=== PATIENT | female | born 1990 | race Caucasian/White ===

== ENCOUNTER 2018-10-18 11:13 | Emergency (ER) | payer MEDICAID ==
[~2018-10-18] VITALS: Ht 167.6 cm; Wt 67.0 kg
[2018-10-18 11:40] VITALS: BP 139/86
== END 2018-10-18 13:28 | disposition home or self-care (01) ==
LOC: ER 11:14
DX: S82.401A Unspecified fracture of shaft of right fibula, initial encounter for closed fracture (principal); Z98.890 Other specified postprocedural states; X58.XXXA Exposure to other specified factors, initial encounter; Y93.89 Activity, other specified; Y92.89 Other specified places as the place of occurrence of the external cause; Y99.8 Other external cause status
CPT/HCPCS: 73590; 99283